=== PATIENT | female | born 1990 | race Two or more races ===

== ENCOUNTER 2024-01-31 07:05 | Outpatient (CLI) | payer OTHER | END 2024-01-31 07:21 | disposition home or self-care (01) | LOC: RX STUDY 07:05 | PROVIDERS: ATTEND General Practice | DX: R10.13 Epigastric pain (principal) ==

== ENCOUNTER 2024-06-02 13:57 | Inpatient (IN) | payer OTHER ==
[~2024-06-02] VITALS: Ht 162.6 cm; Wt 77.1 kg
[~2024-06-02 13:57] MED LIST: ATENOLOL25 MG PO; PRILOSEC OTC20 MG PO
[2024-06-02 17:00] LABS: HEMATOCRIT 28.8 % (36.0-45.00); MEAN CELL VOLUME 69.4 fL (80.00-100.00); MEAN CORPUSCULAR HEMOGLOBIN 21.7 pg (27.00-32.0); MEAN CORPUSCULAR HGB CONC 31.2 g/dl (32.0-36.0); PLATELET COUNT 395 K/uL (150-450); RED BLOOD COUNT 4.15 M/uL (4.00-6.00); RED CELL DISTRIBUTION WIDTH 17.7 % (11.5-14.5)
[2024-06-02 17:15] LABS: INR 1.02; PARTIAL THROMBOPLASTIN TIME 26.2 SECONDS (22.0-34.0); PROTHROMBIN TIME 11.1 SECONDS (9.0-11.5)
[2024-06-02 17:22] LABS: ALBUMIN 3.7 gm/dL (3.4-5.0); BILIRUBIN TOTAL 0.25 mg/dL (0.3-1.2); CALCIUM 8.8 mg/dL (8.5-10.1); CREATININE SERUM 0.64 mg/dL (0.55-1.02); GFR 106.22; POTASSIUM 3.98 mEq/L (3.5-5.1); TOTAL PROTEIN 7.7 gm/dL (6.4-8.2)
[2024-06-02 17:32] LABS: PH,URINE 6.5 (5.0-8.0); URINE APPEARANCE Clear; URINE BILIRRUBIN Negative (NEGATIVE); URINE BLOOD Negative; URINE COLOR Yellow; URINE GLUCOSE Negative (NEGATIVE); URINE KETONE Negative (NEGATIVE); URINE LEUKOCYTE Trace; URINE NITRATE Negative; URINE PROTEIN Negative (NEGATIVE)
[2024-06-02 17:36] LABS: URINE BACTERIA 269.6 uL (0.0-1933); URINE EPITHELIAL CELLS 16.5 uL (0.0-38.8); URINE RBC 3.6 uL (0.0-20.8); URINE WBC 21.3 uL (0.0-23.2)
[2024-06-02] MEDS ORDERED: PANTOPRAZOLE SODIUM 40 MG/VIAL VIAL IV SCH (18:04)
[2024-06-02] MEDS ORDERED: ATENOLOL 25 MG TABLET PO SCH (18:05)
[2024-06-02] MEDS ORDERED: SODIUM CHLORIDE 0.45 % 1,000 ML IV SCH (18:15)
[2024-06-02] MEDS ORDERED: ACETAMINOPHEN 325 MG TABLET PO PRN (18:15)
[2024-06-02 20:47] VITALS: BP 122/74; O2SAT 100
[2024-06-03 00:44] VITALS: BP 105/66; O2SAT 100
[2024-06-03 08:00] VITALS: BP 118/67; O2SAT 100
[2024-06-03 11:29] LABS: HEMATOCRIT 31.7 % (36.0-45.00); HEMOGLOBIN 10.2 g/dL (12.0-15.00); MEAN CORPUSCULAR HEMOGLOBIN 22.6 pg (27.00-32.0); MEAN CORPUSCULAR HGB CONC 32.3 g/dl (32.0-36.0); PLATELET COUNT 355 K/uL (150-450); RED BLOOD COUNT 4.52 M/uL (4.00-6.00); RED CELL DISTRIBUTION WIDTH 19.2 % (11.5-14.5)
[2024-06-03] MEDS ORDERED: ACETAMINOPHEN 500 MG GEL..CAP PO PRN (13:45)
[2024-06-03] MEDS ORDERED: MORPHINE SULFATE 4 MG/ML CARTRIDGE IV SCH (13:50)
[2024-06-03] MEDS ORDERED: CEFOXITIN SODIUM 1,000 MG VIAL IV SCH (17:00)
[2024-06-03 18:26] VITALS: BP 125/72; O2SAT 100
[2024-06-04 00:45] VITALS: BP 107/70; O2SAT 100
[2024-06-04 08:00] VITALS: BP 123/72; O2SAT 98
[2024-06-05 15:36] VITALS: BP 147/79; O2SAT 100
== END 2024-06-04 14:07 | disposition home or self-care (01) | DRG 328 ==
LOC: ER 13:59 → SURH 18:17
PROVIDERS: Emergency Medicine; ADMIT Internal Medicine; ATTEND Internal Medicine
PROC: 0BQT4ZZ Repair Diaphragm, Percutaneous Endoscopic Approach (ICD-10-PCS; principal; 2024-06-03)
PROC: 8E0W4CZ Robotic Assisted Procedure of Trunk Region, Percutaneous Endoscopic Approach (ICD-10-PCS; 2024-06-03)
DX: K44.9 Diaphragmatic hernia without obstruction or gangrene (principal)
CPT/HCPCS: 43281; S2900